=== PATIENT | female | born 2000 | race Hispanic/Latino ===

== ENCOUNTER 2022-06-26 12:12 | Emergency (ER) | payer MEDICAID, OTHER, SELFPAY ==
[2022-06-26] MEDS ORDERED: Ondansetron ODT 4 MG TAB ONE (13:26)
[2022-06-26] MEDS ORDERED: Acetaminophen 500 MG TAB ONE (13:26)
[2022-06-26 13:51] LABS: Bilirubin Neg (Negative); Blood, Urine Negative (Negative); Clarity Slightly Cloudy (Clear); Glucose, Urine (Dipstick) Normal (Negative); Ketone, Urine 5 mg/dL (Negative); Leukocyte 500 (Negative); Nitrite Negative (Negative); Protein, Urine (Dipstick) 15 mg/dl (Neg-Trace); Specific Gravity, Urine 1.015 (1.005-1.030)
[2022-06-26 14:13] LABS: SARS-CoV-2 NAA Rapid Test Not Detected (NotDetected)
[2022-06-26 14:20] LABS: Bacteria/HPF 3+ HPF (None Seen); Mucous/LPF 3+ LPF (<2+); RBC/HPF 0-3 HPF (0-3)
[2022-06-26 14:21] LABS: Calcium Oxalate Crystals Rare HPF (None Seen)
== END 2022-06-26 15:30 | disposition home or self-care (01) ==
LOC: CSHERS 12:12
DX: N39.0 Urinary tract infection, site not specified (principal); R51.9 Headache, unspecified; E78.5 Hyperlipidemia, unspecified; Z20.822 Contact with and (suspected) exposure to COVID-19
CPT/HCPCS: 81003; 81015; 99284; Q0162

== ENCOUNTER 2022-11-10 05:01 | Inpatient (IN) | payer MEDICAID ==
[2022-11-10 05:43] VITALS: BMI 28.1
[2022-11-10] MEDS ORDERED: Promethazine HCl 25 MG/ML VIAL IM PRN ×2 (06:06→09:23)
[2022-11-10] MEDS ORDERED: Methylergonovine 0.2 MG/ML VIAL IM PRN (06:06)
[2022-11-10] MEDS ORDERED: Acetaminophen 500 MG TAB PO PRN (06:06)
[2022-11-10] MEDS ORDERED: Ibuprofen 800 MG TAB PO PRN (06:06)
[2022-11-10] MEDS ORDERED: Carboprost 250 MCG/ML AMP IM PRN (06:06)
[2022-11-10] MEDS ORDERED: Ondansetron PF 4 MG/2 ML Vial IVP PRN ×2 (06:06→09:23)
[2022-11-10] MEDS ORDERED: Misoprostol 200 MCG TAB PR PRN (06:06)
[2022-11-10] MEDS ORDERED: hydrALAZINE 20 MG/ML VIAL SLOW IVP PRN ×2 (06:06→14:44)
[2022-11-10] MEDS ORDERED: Lactated Ringer's 1,000 ML IV SCH (06:15)
[2022-11-10] MEDS ORDERED: NS w/ Oxytocin 30 units 500 ML IV SCH ×2 (06:15→14:44)
[2022-11-10 06:29] LABS: Hematocrit 39.7 % (34.9-44.5); Hemoglobin 13.3 g/dL (12.0-15.5); Mean Corpuscular HGB CONC 33.5 g/dL (32.0-36.0); Mean Corpuscular Hemoglobin 27.8 pg (27.0-33.0); Mean Corpuscular Volume 82.9 fl (81.6-98.3); Mean Platelet Volume 10.3 fl (7.4-10.4); Platelet Count 259 10x3/uL (150-450); RBC Distribution Width 14.1 % (11.5-14.5); Red Blood Cell (RBC) Count 4.79 10x6/uL (3.90-5.03); White Blood Cell (WBC) Count 8.6 10x3/uL (3.5-10.5)
[2022-11-10 07:37] LABS: Syphilis Antibody Nonreactive (Nonreactive); Syphilis Antibody Index 0.04 S/CO (<1.00 Non-Reactive)
[2022-11-10 07:38] LABS: HBSAg Index 0.15 S/CO (0-0.99); Hep B Surf Ag - L&D Non-Reactive S/CO (NonReactive)
[2022-11-10] MEDS ORDERED: Bupivacaine 0.25% HCL 30 ML VIAL ONE (08:00)
[2022-11-10] MEDS ORDERED: fentaNYL/Ropivacaine Epidural 100 ML ONE (08:35)
[2022-11-10] MEDS ORDERED: diphenhydrAMINE 50 MG/ML VIAL IVP PRN (09:23)
[2022-11-10] MEDS ORDERED: ePHEDrine Sulfate 50 MG/10 ML VIAL SLOW IVP PRN (09:23)
[2022-11-10] MEDS ORDERED: Moisturizing Cream (Eucerin) 113 GM JAR TOP PRN (09:23)
[2022-11-10] MEDS ORDERED: Lactated Ringer's 500 ML IV PRN (09:23)
[2022-11-10] MEDS ORDERED: Naloxone HCl 0.4 mg/ml Vial IVP PRN ×2 (09:23)
[2022-11-10] MEDS ORDERED: Acetaminophen 325 MG TAB PO PRN (09:23)
[2022-11-10] MEDS ORDERED: fentaNYL 2 mcg/Ropivacaine 0.2% Epidural 100 ML CADD EPIDURAL SCH (09:30)
[2022-11-10] MEDS ORDERED: Communication Order-Pharmacy FS SCH (09:30)
[2022-11-10] MEDS ORDERED: Preparation H Ointment 28 GM TUBE PR PRN (14:44)
[2022-11-10] MEDS ORDERED: Bisacodyl 10 MG SUPP PR PRN (14:44)
[2022-11-10] MEDS ORDERED: Benzocaine-Menthol 82.5 ML CAN TOP PRN (14:44)
[2022-11-10] MEDS ORDERED: Misoprostol 200 MCG TAB VAG PRN (14:44)
[2022-11-10] MEDS ORDERED: Boostrix 0.5 ML (Tdap) VIAL (>/=7 yrs of age) IM ONE (14:44)
[2022-11-10] MEDS ORDERED: diphenhydrAMINE 25 MG CAP PO PRN (14:44)
[2022-11-10] MEDS ORDERED: Milk Of Magnesia 30 ML UDCUP PO PRN (14:44)
[2022-11-10] MEDS: Ferrous Sulfate 325 MG TAB PO SCH (17:16)
[2022-11-10] MEDS: Ibuprofen 800 MG TAB PO SCH (22:02)
[2022-11-10] MEDS: Docusate 100 MG CAP PO SCH (22:03)
[2022-11-11] MEDS: Ibuprofen 800 MG TAB PO SCH ×3 (05:00→22:12)
[2022-11-11] MEDS: Prenatal Vitamin 1 TAB PO SCH (08:53)
[2022-11-11] MEDS: Docusate 100 MG CAP PO SCH ×2 (08:53→22:12)
[2022-11-12] MEDS: Ibuprofen 800 MG TAB PO SCH ×2 (05:44→14:36)
[2022-11-12] MEDS: Ferrous Sulfate 325 MG TAB PO SCH ×3 (07:20→07:23)
[2022-11-12] MEDS: Prenatal Vitamin 1 TAB PO SCH (08:15)
[2022-11-12] MEDS: Docusate 100 MG CAP PO SCH (08:15)
[2022-11-12 08:36] VITALS: BP 109/71; TEMP 98.4
== END 2022-11-12 16:30 | disposition home or self-care (01) | DRG 806 ==
LOC: CSHLD/OP 05:01 → CSHLD 06:29 → CSHPP 14:35
PROVIDERS: ADMIT Obstetrics & Gynecology; ATTEND Obstetrics & Gynecology
PROC: 10E0XZZ Delivery of Products of Conception, External Approach (ICD-10-PCS; principal; 2022-11-10)
PROC: 10907ZC Drainage of Amniotic Fluid, Therapeutic from Products of Conception, Via Natural or Artificial Opening (ICD-10-PCS; 2022-11-10)
PROC: 0UQGXZZ Repair Vagina, External Approach (ICD-10-PCS; 2022-11-10)
DX: O99.344 Other mental disorders complicating childbirth (principal); O71.4 Obstetric high vaginal laceration alone; Z37.0 Single live birth; F32.9 Major depressive disorder, single episode, unspecified; Z3A.38 38 weeks gestation of pregnancy; Z87.448 Personal history of other diseases of urinary system; O77.0 Labor and delivery complicated by meconium in amniotic fluid
CPT/HCPCS: 36415; 51702; 85027; 86780; 86850; 86900; 86901; 87340; 99285; J2590; J7120; S0020

== ENCOUNTER 2023-12-19 20:25 | Inpatient (IN) | payer MEDICAID ==
[2023-12-19 20:53] VITALS: BMI 30.4
[2023-12-19] MEDS ORDERED: Lidocaine 1% (PF) 30 ML VIAL SC PRN (20:56)
[2023-12-19] MEDS ORDERED: hydrALAZINE 20 MG/ML VIAL SLOW IVP PRN (20:56)
[2023-12-19] MEDS ORDERED: Ondansetron PF 4 MG/2 ML Vial IVP PRN ×2 (20:56→23:23)
[2023-12-19] MEDS ORDERED: Promethazine HCl 25 MG/ML VIAL IM PRN ×2 (20:56→23:23)
[2023-12-19] MEDS ORDERED: Methylergonovine 0.2 MG/ML VIAL IM PRN (20:57)
[2023-12-19] MEDS ORDERED: Tranexamic Acid 1,000 MG/10 ML VIAL IVP PRN (20:57)
[2023-12-19] MEDS ORDERED: Carboprost 250 MCG/ML AMP IM PRN (20:57)
[2023-12-19] MEDS ORDERED: Diphenoxylate HCl/Atropine Tablet PO PRN (20:57)
[2023-12-19] MEDS ORDERED: Oxytocin 30 units/NS 500 ML 500 ML IV SCH (21:00)
[2023-12-19] MEDS: Lactated Ringer's 1,000 ML IV SCH (21:00)
[2023-12-19 21:38] LABS: Hematocrit 37.4 % (34.9-44.5); Hemoglobin 12.9 g/dL (12.0-15.5); Mean Corpuscular HGB CONC 34.5 g/dL (32.0-36.0); Mean Corpuscular Hemoglobin 29.1 pg (27.0-33.0); Mean Corpuscular Volume 84.4 fL (81.6-98.3); Mean Platelet Volume 9.5 fL (7.4-10.4); Platelet Count 253 10x3/uL (150-450); RBC Distribution Width 14.1 % (11.5-14.5); Red Blood Cell (RBC) Count 4.43 10x6/uL (3.90-5.03)
[2023-12-19] MEDS ORDERED: Naloxone HCl 0.4 mg/ml Vial IVP PRN ×2 (23:23)
[2023-12-19] MEDS ORDERED: Moisturizing Cream (Eucerin) 113 GM JAR TOP PRN (23:23)
[2023-12-19] MEDS ORDERED: Lactated Ringer's 500 ML IV PRN (23:23)
[2023-12-19] MEDS ORDERED: ePHEDrine Sulfate 50 MG/10 ML VIAL SLOW IVP PRN (23:23)
[2023-12-19] MEDS ORDERED: diphenhydrAMINE 50 MG/ML VIAL IVP PRN (23:23)
[2023-12-19] MEDS ORDERED: fentaNYL 2 mcg/Ropivacaine 0.2% Epidural 100 ML CADD EPIDURAL SCH (23:30)
[2023-12-19] MEDS ORDERED: Communication Order-Pharmacy FS SCH (23:30)
[2023-12-19 23:52] LABS: Hep B Surf Ag - L&D Non-Reactive S/CO (NonReactive); Syphilis Antibody Nonreactive (Nonreactive); Syphilis Antibody Index 0.04 S/CO (<1.00 Non-Reactive)
[2023-12-20] MEDS: Oxytocin 30 units/NS 500 ML 500 ML IV SCH (01:11)
[2023-12-20] MEDS: Misoprostol 200 MCG TAB PR PRN (02:26)
[2023-12-20] MEDS: Acetaminophen 325 MG TAB PO PRN (02:38)
[2023-12-20] MEDS ORDERED: diphenhydrAMINE 25 MG CAP PO PRN (04:38)
[2023-12-20] MEDS ORDERED: Misoprostol 200 MCG TAB VAG PRN (04:38)
[2023-12-20] MEDS ORDERED: hydrALAZINE 20 MG/ML VIAL SLOW IVP PRN (04:38)
[2023-12-20] MEDS ORDERED: Milk Of Magnesia 30 ML UDCUP PO PRN (04:38)
[2023-12-20] MEDS ORDERED: Methylergonovine 0.2 MG/ML VIAL IM PRN (04:38)
[2023-12-20] MEDS ORDERED: Lanolin Ointment 7 GM TUBE TOP PRN (04:38)
[2023-12-20] MEDS ORDERED: Ondansetron PF 4 MG/2 ML Vial IVP PRN (04:38)
[2023-12-20] MEDS ORDERED: Bisacodyl 10 MG SUPP PR PRN (04:38)
[2023-12-20] MEDS ORDERED: Preparation H Ointment 28 GM TUBE PR PRN (04:38)
[2023-12-20] MEDS ORDERED: Oxytocin 30 units/NS 500 ML 500 ML IV SCH (04:45)
[2023-12-20] MEDS: Ibuprofen 800 MG TAB PO SCH (05:14)
[2023-12-20] MEDS ORDERED: HYDROcodone/Acetaminophen 5/325 mg Tablet PO PRN (05:15)
[2023-12-20] MEDS: Ferrous Sulfate 325 MG TAB PO SCH (07:27)
[2023-12-20] MEDS: Boostrix 0.5 ML (Tdap) VIAL (>/=7 yrs of age) IM ONE (07:27)
[2023-12-20] MEDS: fentaNYL/Ropivacaine Epidural 100 ML ONE (07:27)
[2023-12-20] MEDS: Prenatal Vitamin 1 TAB PO SCH (09:33)
[2023-12-20] MEDS: Docusate 100 MG CAP PO SCH (09:33)
[2023-12-20] MEDS: Benzocaine-Menthol 82.5 ML CAN TOP PRN (09:33)
[2023-12-21 08:06] VITALS: BP 112/56; TEMP 98.1
== END 2023-12-21 16:30 | disposition home or self-care (01) | DRG 807 ==
LOC: CSHLD/OP 20:25 → CSHLD 20:58 → CSHPP 12-20 04:27
PROVIDERS: ADMIT Family Medicine; ATTEND Family Medicine
PROC: 10E0XZZ Delivery of Products of Conception, External Approach (ICD-10-PCS; principal; 2023-12-19)
PROC: 10907ZC Drainage of Amniotic Fluid, Therapeutic from Products of Conception, Via Natural or Artificial Opening (ICD-10-PCS; 2023-12-19)
PROC: 0UQMXZZ Repair Vulva, External Approach (ICD-10-PCS; 2023-12-19)
DX: O99.02 Anemia complicating childbirth (principal); Z37.0 Single live birth; Z3A.38 38 weeks gestation of pregnancy; O71.82 Other specified trauma to perineum and vulva; D64.9 Anemia, unspecified
CPT/HCPCS: 51701; 85027; 86780; 86850; 86900; 86901; 87340; 99285; J2590; J7120